=== PATIENT | male | born 1995 | race Caucasian/White ===

== ENCOUNTER 2023-08-21 16:06 | Emergency (ER) | payer OTHER ==
[~2023-08-21] VITALS: Ht 182.9 cm; Wt 103.2 kg
[2023-08-21] MEDS: MECLIZINE 25 MG TABLET PO ONE (20:10)
[2023-08-21] MEDS ORDERED: MECL-209 PO (20:42)
[2023-08-21 20:53] VITALS: BP 123/78; TEMP 98.1; O2SAT 97
== END 2023-08-21 20:53 | disposition home or self-care (01) ==
LOC: M ED 16:06
DX: R42 Dizziness and giddiness (principal); F41.9 Anxiety disorder, unspecified; G43.909 Migraine, unspecified, not intractable, without status migrainosus; F17.290 Nicotine dependence, other tobacco product, uncomplicated; Z88.0 Allergy status to penicillin

== ENCOUNTER → 2023-11-26 | Outpatient (CLI) | payer OTHER ==
[~2023-11-26] MED LIST: CARB10TACH PO; MECL-209 PO; MECL-86 PO; MIRT-11 PO; ONDA4TAB6 PO; PROT1TAB2 PO; SUCR1SS PO
== END ==
LOC: M SLEEP 20:00
PROVIDERS: ATTEND Nurse Practitioner Family
DX: G47.33 Obstructive sleep apnea (adult) (pediatric) (principal)

== ENCOUNTER 2023-12-12 10:54 | Day surgery (SDC) | payer OTHER ==
[~2023-12-12] VITALS: Ht 182.9 cm; Wt 106.1 kg
[~2023-12-12 10:54] MED LIST changes: +ONDA-282 PO; -ONDA4TAB6 PO
[2023-12-12] MEDS: NS 1,000 ML IV ONE (11:46)
[2023-12-12] MEDS ORDERED: fentaNYL 100 MCG/2 ML INJECTION As Ordered ONE (11:59)
[2023-12-12] MEDS ORDERED: LIDOCAINE 2% 100MG/5ML SDV (FOR ANES.) As Ordered ONE (12:00)
[2023-12-12] MEDS ORDERED: propofoL 200 MG/20 ML VIAL As Ordered ONE (12:00)
[2023-12-12 12:28] VITALS: TEMP 97.2
[2023-12-12 12:40] VITALS: BP 119/68; O2SAT 98
== END 2023-12-12 12:46 | disposition home or self-care (01) ==
LOC: M OPP 10:54
PROVIDERS: ATTEND Internal Medicine Gastroenterology
DX: K22.89 Other specified disease of esophagus (principal); K31.7 Polyp of stomach and duodenum; R12 Heartburn; K92.0 Hematemesis; F17.200 Nicotine dependence, unspecified, uncomplicated; Z79.899 Other long term (current) drug therapy; Z88.1 Allergy status to other antibiotic agents
CPT/HCPCS: 43251; 88305; J3010

== ENCOUNTER 2023-12-27 08:36 | Emergency (ER) | payer OTHER ==
[~2023-12-27] VITALS: Ht 182.9 cm; Wt 102.6 kg
[2023-12-27] MEDS ORDERED: FAMO20TA PO (09:55)
[2023-12-27] MEDS: LIDOCAINE VISCOUS 2% SOLN 15ML UDC PO ONE (10:34)
[2023-12-27 10:35] LABS: BASO % 0.4 % (0.0-1.0); EOS # 0.1 10^3/uL (0.0-0.5); EOS % 0.8 % (0.0-3.0); HEMATOCRIT 43.6 % (42.0-52.0); HEMOGLOBIN 14.5 g/dl (13.5-17.5); LYMPH # 2.1 10^3/uL (1.5-5.0); MEAN CORPUSCULAR HEMOGLOBIN 27.5 pg (27.0-33.0); MEAN CORPUSCULAR HGB CONC 33.3 g/dl (32.0-36.5); MEAN CORPUSCULAR VOLUME 82.6 fl (80.0-96.0); MONO # 0.7 10^3/uL (0.0-0.8); MONO % 10.2 % (2.0-8.0); NEUTROPHILS # 4.3 10^3/uL (1.5-8.5); NEUTROPHILS % 59.3 % (36.0-66.0); PLATELET COUNT, AUTOMATED 265 10^3/uL (150-450); RED BLOOD COUNT 5.28 10^6/uL (4.30-6.10); WHITE BLOOD COUNT 7.2 10^3/uL (4.0-10.0)
[2023-12-27] MEDS: SUCRALFATE SUSP 1GM/10ML UD PO ONE (10:35)
[2023-12-27] MEDS: MAALOX 30 ML SUSP *UDC PO ONE (10:37)
[2023-12-27 10:53] LABS: LIPASE 36 U/L (12-53)
[2023-12-27 10:55] LABS: ALBUMIN 3.6 G/DL (3.2-5.2); ALKALINE PHOSPHATASE 84 U/L (46-116); ALT/SGPT 50 U/L (7.0-40); AST/SGOT 16 U/L (<34); BILIRUBIN,DIRECT 0.1 MG/DL (<0.4); BILIRUBIN,TOTAL 0.4 MG/DL (0.3-1.2); BLOOD UREA NITROGEN 12 MG/DL (9-23); CALCIUM LEVEL 9.1 MG/DL (8.5-10.1); CARBON DIOXIDE LEVEL 25 MMOL/L (20-31); CHLORIDE LEVEL 108 MMOL/L (98-107); CK-MB VALUE MASS < 1.0 NG/ML (<3.6); GLOMERULAR FILTRATION RATE > 60.0 (>60); GLUCOSE, FASTING 92 MG/DL (60-100); POTASSIUM SERUM 4.1 MMOL/L (3.5-5.1); SODIUM LEVEL 139 MMOL/L (136-145); TOTAL PROTEIN 6.4 G/DL (5.7-8.2)
[2023-12-27 11:02] LABS: CPK CREATINE PHOSPHOKINASE 110 U/L (46-171)
[2023-12-27] MEDS ORDERED: SUCR1SS PO (11:37)
[2023-12-27 12:15] VITALS: BP 115/80; TEMP 96.7; O2SAT 98
== END 2023-12-27 12:24 | disposition home or self-care (01) ==
LOC: M ED 08:36
DX: K21.9 Gastro-esophageal reflux disease without esophagitis (principal); F41.9 Anxiety disorder, unspecified; Z88.1 Allergy status to other antibiotic agents; Z79.899 Other long term (current) drug therapy

== ENCOUNTER 2024-03-19 17:59 | Emergency (ER) | payer OTHER ==
[~2024-03-19] VITALS: Ht 182.9 cm; Wt 112.2 kg
[~2024-03-19 17:59] MED LIST changes: +FAMO20TA PO
[2024-03-19 18:00] VITALS: BP 136/86; TEMP 98.4; O2SAT 98
== END 2024-03-19 18:39 | disposition left against medical advice (07) ==
LOC: M ED 17:59
DX: Z53.21 Procedure and treatment not carried out due to patient leaving prior to being seen by health care provider (principal)

== ENCOUNTER 2024-04-07 12:23 | Emergency (ER) | payer OTHER ==
[~2024-04-07] VITALS: Ht 182.9 cm; Wt 111.7 kg
[2024-04-07] MEDS ORDERED: OMEP10CASR PO (12:40)
[2024-04-07 13:58] LABS: BASO % 0.5 % (0.0-1.0); EOS % 0.3 % (0.0-3.0); HEMATOCRIT 44.1 % (42.0-52.0); LYMPH # 1.5 10^3/uL (1.5-5.0); LYMPH % 23.2 % (24.0-44.0); MEAN CORPUSCULAR VOLUME 82.4 fl (80.0-96.0); MONO # 0.5 10^3/uL (0.0-0.8); MONO % 7.6 % (2.0-8.0); NEUTROPHILS # 4.3 10^3/uL (1.5-8.5); NEUTROPHILS % 68.1 % (36.0-66.0); PLATELET COUNT, AUTOMATED 274 10^3/uL (150-450); RED BLOOD COUNT 5.35 10^6/uL (4.30-6.10); WHITE BLOOD COUNT 6.3 10^3/uL (4.0-10.0)
[2024-04-07 14:20] LABS: LIPASE 51 U/L (12-53)
[2024-04-07 14:22] LABS: ALKALINE PHOSPHATASE 82 U/L (46-116); ALT/SGPT 43 U/L (7.0-40); AST/SGOT 15 U/L (<34); BILIRUBIN,DIRECT 0.2 MG/DL (<0.4); BILIRUBIN,TOTAL 0.6 MG/DL (0.3-1.2); BLOOD UREA NITROGEN 13 MG/DL (9-23); CARBON DIOXIDE LEVEL 24 MMOL/L (20-31); CHLORIDE LEVEL 107 MMOL/L (98-107); CREATININE FOR GFR 1.02 MG/DL (0.70-1.30); GLOMERULAR FILTRATION RATE > 60.0 (>60); GLUCOSE, FASTING 106 MG/DL (60-100); POTASSIUM SERUM 4.4 MMOL/L (3.5-5.1); SODIUM LEVEL 136 MMOL/L (136-145); TOTAL PROTEIN 7.2 G/DL (5.7-8.2)
[2024-04-07 22:23] VITALS: BP 129/64; TEMP 97.6; O2SAT 97
== END 2024-04-07 22:25 | disposition home or self-care (01) ==
LOC: M ED 12:23
DX: K80.51 Calculus of bile duct without cholangitis or cholecystitis with obstruction (principal); F17.210 Nicotine dependence, cigarettes, uncomplicated; F12.10 Cannabis abuse, uncomplicated; Z88.1 Allergy status to other antibiotic agents; Z79.899 Other long term (current) drug therapy

== ENCOUNTER 2024-04-13 02:15 | Emergency (ER) | payer OTHER ==
[~2024-04-13] VITALS: Ht 182.9 cm; Wt 111.4 kg
[~2024-04-13 02:15] MED LIST changes: +OMEP10CASR PO
[2024-04-13 05:01] VITALS: BP 118/79; TEMP 97.9; O2SAT 99
== END 2024-04-13 05:31 | disposition left against medical advice (07) ==
LOC: M ED 02:15
DX: Z53.21 Procedure and treatment not carried out due to patient leaving prior to being seen by health care provider (principal)

== ENCOUNTER 2024-04-16 18:29 | Inpatient (IN) | payer OTHER ==
[~2024-04-16] VITALS: Ht 182.9 cm; Wt 109.2 kg
[2024-04-16 19:19] LABS: HEMOGLOBIN 15.4 g/dl (13.5-17.5); MEAN CORPUSCULAR HEMOGLOBIN 27.5 pg (27.0-33.0); MEAN CORPUSCULAR HGB CONC 33.5 g/dl (32.0-36.5); MEAN CORPUSCULAR VOLUME 82.3 fl (80.0-96.0); PLATELET COUNT, AUTOMATED 261 10^3/uL (150-450); RED BLOOD COUNT 5.59 10^6/uL (4.30-6.10); WHITE BLOOD COUNT 6.8 10^3/uL (4.0-10.0)
[2024-04-16 19:40] LABS: ETHYL ALCOHOL (ETHANOL) < 0.003 % (0.000-0.010)
[2024-04-16 19:42] LABS: SALICYLATE LEVEL < 3.0 MG/DL (<30)
[2024-04-16 19:44] LABS: THYROID STIMULATING HORMONE 0.839 uIU/ML (0.55-4.78)
[2024-04-16 19:49] LABS: ALBUMIN 3.8 G/DL (3.2-5.2); ALKALINE PHOSPHATASE 82 U/L (46-116); ALT/SGPT 45 U/L (7.0-40); AST/SGOT 19 U/L (<34); BILIRUBIN,DIRECT 0.3 MG/DL (<0.4); BILIRUBIN,TOTAL 0.7 MG/DL (0.3-1.2); BLOOD UREA NITROGEN 11 MG/DL (9-23); CALCIUM LEVEL 9.4 MG/DL (8.5-10.1); CARBON DIOXIDE LEVEL 27 MMOL/L (20-31); CHLORIDE LEVEL 106 MMOL/L (98-107); CREATININE FOR GFR 0.97 MG/DL (0.70-1.30); GLOMERULAR FILTRATION RATE > 60.0 (>60); GLUCOSE, FASTING 99 MG/DL (60-100); POTASSIUM SERUM 4.1 MMOL/L (3.5-5.1); SODIUM LEVEL 139 MMOL/L (136-145); TOTAL PROTEIN 6.9 G/DL (5.7-8.2)
[2024-04-16] MEDS: CALCIUM CARBONATE 500 MG CHEW U/D PO ONE (19:58)
[2024-04-16 20:13] LABS: AMPHETAMINES LEVEL URINE NEGATIVE (NEGATIVE); BARBITURATES URINE NEGATIVE (NEGATIVE); BENZODIAZEPINES URINE NEGATIVE (NEGATIVE); COCAINE METABOLITE URINE NEGATIVE (NEGATIVE); METHADONE URINE NEGATIVE (NEGATIVE); OPIATES URINE NEGATIVE (NEGATIVE); PHENCYCLIDINE URINE NEGATIVE (NEGATIVE)
[2024-04-16 20:14] LABS: CANNABINOIDS URINE POSITIVE (NEGATIVE)
[2024-04-16] MEDS ORDERED: ACETAMINOPHEN TAB 650MG DOSE (2X325MG) PO PRN (22:35)
[2024-04-16] MEDS ORDERED: MOM 30ML SUSPENSION UDC PO PRN (22:35)
[2024-04-16] MEDS ORDERED: IBUPROFEN 400MG TAB PO PRN (22:35)
[2024-04-16] MEDS: traZODone 50 MG TAB PO PRN (23:52)
[2024-04-17] MEDS ORDERED: HOME MED LIST COMPLETE! XX SCH (00:15)
[2024-04-17] MEDS ORDERED: MULT-90 PO (00:15)
[2024-04-17] MEDS: diphenhydrAMINE 25MG CAP PO PRN (01:28)
[2024-04-17] MEDS: MAALOX 30 ML SUSP *UDC PO PRN (01:38)
[2024-04-17 05:58] VITALS: BP 145/68; TEMP 97.1; O2SAT 97
[2024-04-17 11:52] VITALS: BP_SYST 110; BP_SYST 130; BP_SYST 139; BP_DIAS 80; BP_DIAS 84; BP_DIAS 90
[2024-04-17] MEDS: PANTOPRAZOLE 40MG TAB (PROTONIX) PO ONE (13:12)
[2024-04-17] MEDS: MAALOX 30 ML SUSP *UDC PO ONE (13:12)
[2024-04-17 13:34] LABS: CK-MB VALUE MASS < 1.0 NG/ML (<3.6)
[2024-04-17 13:35] LABS: CPK CREATINE PHOSPHOKINASE 126 U/L (46-171); MB/CK RELATIVE INDEX 0.79 (< OR =4)
[2024-04-17 15:23] VITALS: BP 137/91; TEMP 97; O2SAT 95
[2024-04-17 15:36] VITALS: BP 131/69; TEMP 98; O2SAT 97
[2024-04-17] MEDS ORDERED: ISOVUE-370 76% 100ML VIAL As Ordered ONE (16:07)
[2024-04-17] MEDS: ONDANSETRON 4MG ORAL DISINTEGRATING TAB SL PRN (16:35)
[2024-04-17] MEDS: PANTOPRAZOLE 40MG TAB (PROTONIX) PO SCH (20:28)
[2024-04-17] MEDS: MIRTAZAPINE 15 MG TAB PO SCH (20:29)
[2024-04-17] MEDS: NICOTINE 14 MG/24 HR TRANSDERMAL TD SCH (20:32)
[2024-04-17] MEDS ORDERED: MIRTAZAPINE 15 MG TAB PO SCH (21:00)
[2024-04-18 00:56] VITALS: BP_SYST 137; BP_SYST 143; BP_SYST 147; BP_DIAS 75; BP_DIAS 88
[2024-04-18 06:00] VITALS: BP 113/59; TEMP 97; O2SAT 100
[2024-04-18 09:15] VITALS: BP_SYST 117; BP_SYST 118; BP_SYST 119; BP_DIAS 65; BP_DIAS 74; BP_DIAS 87
[2024-04-18] MEDS ORDERED: PROMETHAZINE 25MG/ML 1ML VIAL IM PRN (14:40)
[2024-04-18] MEDS: PROMETHAZINE 25MG/ML 1ML VIAL IM PRN (15:44)
[2024-04-18 15:53] VITALS: BP 126/75; TEMP 98; O2SAT 95
[2024-04-18 16:00] VITALS: BP_SYST 119; BP_SYST 135; BP_SYST 138; BP_DIAS 100; BP_DIAS 78; BP_DIAS 87
[2024-04-19 00:18] VITALS: BP_SYST 133; BP_SYST 139; BP_SYST 153; BP_DIAS 68; BP_DIAS 85; BP_DIAS 90
[2024-04-19 06:00] VITALS: BP 121/63; TEMP 97.1; O2SAT 97
[2024-04-19 06:58] LABS: BLOOD UREA NITROGEN 9 MG/DL (9-23); CALCIUM LEVEL 9.3 MG/DL (8.5-10.1); CARBON DIOXIDE LEVEL 24 MMOL/L (20-31); CHLORIDE LEVEL 106 MMOL/L (98-107); CREATININE FOR GFR 0.91 MG/DL (0.70-1.30); GLOMERULAR FILTRATION RATE > 60.0 (>60); GLUCOSE, FASTING 90 MG/DL (60-100); POTASSIUM SERUM 4.1 MMOL/L (3.5-5.1); SODIUM LEVEL 137 MMOL/L (136-145)
[2024-04-19 08:00] VITALS: BP_SYST 131; BP_SYST 132; BP_SYST 133; BP_DIAS 75; BP_DIAS 76; BP_DIAS 86
[2024-04-19 16:17] VITALS: BP 129/79; TEMP 97.9; O2SAT 94
[2024-04-20 00:41] VITALS: BP_SYST 133; BP_SYST 138; BP_SYST 143; BP_DIAS 61; BP_DIAS 82; BP_DIAS 86
[2024-04-20] MEDS: LORazepam 1 MG TAB PO STA (01:28)
[2024-04-20 06:32] VITALS: BP 105/59; TEMP 98.6; O2SAT 96
== END 2024-04-20 12:25 | disposition home or self-care (01) | DRG 880 ==
LOC: M ED 18:29 → M ED INP 22:33 → M PSY 23:10
PROVIDERS: ADMIT Psychiatry & Neurology Psychiatry; ATTEND Psychiatry & Neurology Psychiatry
PROC: B246ZZZ Ultrasonography of Right and Left Heart (ICD-10-PCS; principal; 2024-04-19)
DX: F41.9 Anxiety disorder, unspecified (principal); R45.851 Suicidal ideations; F40.10 Social phobia, unspecified; R42 Dizziness and giddiness; R11.2 Nausea with vomiting, unspecified; I95.1 Orthostatic hypotension; F45.0 Somatization disorder

== ENCOUNTER 2024-04-21 12:34 | Emergency (ER) | payer OTHER ==
[~2024-04-21] VITALS: Ht 182.9 cm; Wt 109.9 kg
[~2024-04-21 12:34] MED LIST changes: +MULT-90 PO
[2024-04-21 13:55] VITALS: BP 133/77; TEMP 98; O2SAT 97
[2024-04-21] MEDS: ONDANSETRON 4MG ORAL DISINTEGRATING TAB PO ONE (15:03)
== END 2024-04-21 16:11 | disposition left against medical advice (07) ==
LOC: EDBD 12:34 → M ED 12:34
DX: F41.9 Anxiety disorder, unspecified (principal); K21.9 Gastro-esophageal reflux disease without esophagitis; Z88.1 Allergy status to other antibiotic agents; Z79.810 Long term (current) use of selective estrogen receptor modulators (SERMs); Z53.9 Procedure and treatment not carried out, unspecified reason

== ENCOUNTER → 2024-06-18 | Outpatient (CLI) | payer OTHER | LOC: M RAD 12:15 | PROVIDERS: ATTEND Internal Medicine Gastroenterology | DX: R11.2 Nausea with vomiting, unspecified (principal) | CPT/HCPCS: 78264; A9541 ==

== ENCOUNTER → 2024-06-21 | Outpatient (CLI) | payer OTHER | LOC: M RAD 08:22 | PROVIDERS: ATTEND Internal Medicine Gastroenterology | DX: R11.2 Nausea with vomiting, unspecified (principal) | CPT/HCPCS: 78227; A9537 ==